=== PATIENT | male | born 1990 | race Caucasian/White ===

== ENCOUNTER 2016-09-16 10:46 | Inpatient (IN) | payer MEDICAID ==
[~2016-09-16] VITALS: Ht 162.6 cm; Wt 97.4 kg
[2016-09-16] MEDS ORDERED: HALOPERIDOL LACTATE 5 MG/ML VIAL ONE (11:39)
[2016-09-16] MEDS ORDERED: DiphenhydrAMINE HCL 50 MG/ML VIAL ONE (11:39)
[2016-09-16] MEDS ORDERED: LORazepam 2 MG/ML VIAL ONE (11:39)
[2016-09-16] MEDS ORDERED: DiphenhydrAMINE HCL 50 MG/ML VIAL IM ONE (12:00)
[2016-09-16] MEDS ORDERED: LORazepam 2 MG/ML VIAL IM ONE (12:00)
[2016-09-16] MEDS ORDERED: HALOPERIDOL LACTATE 5 MG/ML VIAL IM ONE (12:00)
[2016-09-16 12:21] LABS: BASOPHILS % (AUTO) 0.3 % (0.0-2.0); EOSINOPHILS % (AUTO) 0.5 % (1.0-6.0); HEMATOCRIT 43.5 % (41-53); HEMOGLOBIN 14.5 g/dL (13.5-17.5); LYMPHOCYTES # (AUTO) 1.4 K/uL (1.0-4.8); LYMPHOCYTES % (AUTO) 14.8 % (22.0-44.0); MEAN CORPUSCULAR HEMOGLOBIN 27.4 pg (26.0-34.0); MEAN CORPUSCULAR HGB CONC 33.3 G/dL (31.0-37.0); MEAN CORPUSCULAR VOLUME 82 fL (80-100); MONOCYTES # (AUTO) 0.5 K/uL (0.1-1.0); MONOCYTES % (AUTO) 5.6 % (2.0-9.0); NEUTROPHILS # (AUTO) 7.3 K/uL (1.8-7.7); NEUTROPHILS % (AUTO) 78.8 % (40.0-70.0); PLATELET COUNT (AUTO) 176 K/uL (150-450); RED BLOOD CELL COUNT(AUTO) 5.28 MIL/uL (4.50-5.90); RED CELL DISTRIBUTION WIDTH 13.1 % (11.5-14.5); WHITE BLOOD COUNT (AUTO) 9.3 K/uL (4.5-11.0)
[2016-09-16 12:27] LABS: ANION GAP 12 mmol/L (8-16); CALCIUM, TOTAL 8.7 mg/dL (8.8-10.5); CARBON DIOXIDE 24 mmol/L (22-29); CHLORIDE 103 mmol/L (98-107); CREATININE 0.92 mg/dL (0.60-1.30); GLOMERULAR FILTR. RATE CALC > 60 mL/min (>60); POTASSIUM 3.8 mmol/L (3.5-5.1); SODIUM SERUM 139 mmol/L (136-145); UREA NITROGEN, BLOOD 15 mg/dL (7-18)
[2016-09-16 12:33] LABS: ALANINE AMINOTRANSFERASE 41 U/L (12-78); ALBUMIN 4.3 g/dL (3.4-5.0); ASPARTATE AMINOTRANSFERASE 32 U/L (15-37); BILIRUBIN,TOTAL 0.9 mg/dL (0.1-1.0); TOTAL PROTEIN, SERUM 7.9 g/dL (6.4-8.2)
[2016-09-16] MEDS: OLANZapine 5 MG TABLET PO SCH (16:06)
[2016-09-16 17:34] VITALS: BP 119/75
[2016-09-16] MEDS ORDERED: INFLUENZA VIRUS VACCINE QVS 2016-17 (3YR+)/PF 60 MCG/0.5 ML SYRINGE IM ONE (18:00)
[2016-09-17 06:42] VITALS: BP 127/80
[2016-09-17 08:01] VITALS: BP 110/86
[2016-09-17] MEDS: OLANZapine 5 MG TABLET PO SCH ×2 (09:00→17:00)
[2016-09-17] MEDS ORDERED: LORazepam 2 MG/ML VIAL IM ONE (09:30)
[2016-09-17] MEDS ORDERED: DiphenhydrAMINE HCL 50 MG/ML VIAL IM ONE (09:30)
[2016-09-17] MEDS ORDERED: HALOPERIDOL LACTATE 5 MG/ML VIAL IM ONE (09:30)
[2016-09-17 16:02] VITALS: BP 135/82
[2016-09-17] MEDS: ONDANSETRON HCL 4 MG TABLET PO PRN (19:49)
[2016-09-18 06:48] VITALS: BP 122/68
[2016-09-18 08:01] VITALS: BP 135/71
[2016-09-18] MEDS: OLANZapine 5 MG TABLET PO SCH ×2 (09:13→16:22)
[2016-09-18] MEDS: LORazepam 2 MG TABLET PO PRN ×2 (09:14→16:22)
[2016-09-18] MEDS ORDERED: INFLUENZA VIRUS VACCINE QVS 2016-17 (3YR+)/PF 60 MCG/0.5 ML SYRINGE IM ONE (14:15)
[2016-09-18 16:01] VITALS: BP 119/68
[2016-09-19 01:30] VITALS: BP 129/60
[2016-09-19] MEDS: OLANZapine 5 MG RAPDIS TABLET PO PRN (02:47)
[2016-09-19] MEDS: LORazepam 2 MG TABLET PO PRN ×2 (02:47→17:03)
[2016-09-19 08:01] VITALS: BP 114/78
[2016-09-19] MEDS: OLANZapine 5 MG TABLET PO SCH ×2 (08:14→17:03)
[2016-09-19] MEDS ORDERED: LORazepam 2 MG/ML VIAL ONE (08:42)
[2016-09-19] MEDS ORDERED: HALOPERIDOL LACTATE 5 MG/ML VIAL ONE (08:42)
[2016-09-19] MEDS ORDERED: DiphenhydrAMINE HCL 50 MG/ML VIAL ONE (08:42)
[2016-09-19] MEDS ORDERED: HALOPERIDOL LACTATE 5 MG/ML VIAL IM ONE (08:45)
[2016-09-19] MEDS ORDERED: LORazepam 2 MG/ML VIAL IM ONE (08:45)
[2016-09-19] MEDS ORDERED: DiphenhydrAMINE HCL 50 MG/ML VIAL IM ONE (08:45)
[2016-09-19 16:00] VITALS: BP 136/82
[2016-09-20 04:54] VITALS: BP 132/78
[2016-09-20] MEDS: OLANZapine 5 MG RAPDIS TABLET PO PRN ×2 (06:45→11:13)
[2016-09-20] MEDS: LORazepam 2 MG TABLET PO PRN ×3 (06:45→16:32)
[2016-09-20 08:02] VITALS: BP 134/82
[2016-09-20] MEDS: OLANZapine 5 MG TABLET PO SCH ×2 (09:09→16:32)
[2016-09-20 16:00] VITALS: BP 116/60
[2016-09-21] MEDS: ZOLPIDEM TARTRATE 10 MG TABLET PO PRN (01:06)
[2016-09-21 01:07] VITALS: BP 125/75
[2016-09-21 08:01] VITALS: BP 143/78
[2016-09-21] MEDS: OLANZapine 5 MG RAPDIS TABLET PO PRN (08:03)
[2016-09-21] MEDS: LORazepam 2 MG TABLET PO PRN ×2 (08:03→16:15)
[2016-09-21] MEDS: OLANZapine 5 MG TABLET PO SCH ×2 (08:03→16:15)
[2016-09-21] MEDS: NYSTATIN 30 GM OINTMENT TP SCH ×2 (09:30→16:15)
[2016-09-21 16:29] VITALS: BP 138/88
[2016-09-22 02:06] VITALS: BP 124/72
[2016-09-22] MEDS: ZOLPIDEM TARTRATE 10 MG TABLET PO PRN ×2 (02:09→20:27)
[2016-09-22] MEDS: OLANZapine 5 MG TABLET PO SCH ×2 (08:09→09:33)
[2016-09-22] MEDS: OLANZapine 5 MG RAPDIS TABLET PO PRN ×2 (08:09→16:14)
[2016-09-22] MEDS: LORazepam 2 MG TABLET PO PRN ×3 (08:09→20:27)
[2016-09-22] MEDS: NYSTATIN 30 GM OINTMENT TP SCH ×2 (08:17→17:38)
[2016-09-22 08:33] VITALS: BP 135/83
[2016-09-22 17:02] VITALS: BP 136/85
[2016-09-22] MEDS: OLANZapine 10 MG TABLET PO SCH (20:27)
[2016-09-23 05:25] VITALS: BP 123/76
[2016-09-23 08:25] VITALS: BP 131/78
[2016-09-23] MEDS: NYSTATIN 30 GM OINTMENT TP SCH ×2 (09:35→16:16)
[2016-09-23] MEDS: LORazepam 2 MG TABLET PO PRN ×3 (09:35→20:17)
[2016-09-23] MEDS: OLANZapine 5 MG TABLET PO SCH (09:35)
[2016-09-23 16:00] VITALS: BP 134/90
[2016-09-23] MEDS: OLANZapine 5 MG RAPDIS TABLET PO PRN (16:16)
[2016-09-23] MEDS: ZOLPIDEM TARTRATE 10 MG TABLET PO PRN (20:17)
[2016-09-23] MEDS: OLANZapine 10 MG TABLET PO SCH (20:17)
[2016-09-24] MEDS: LORazepam 2 MG TABLET PO PRN ×2 (05:26→10:20)
[2016-09-24 06:43] VITALS: BP 122/87
[2016-09-24 08:01] VITALS: BP 132/68
[2016-09-24] MEDS: OLANZapine 5 MG TABLET PO SCH (08:34)
[2016-09-24] MEDS: NYSTATIN 30 GM OINTMENT TP SCH ×2 (08:34→16:26)
[2016-09-24 16:13] VITALS: BP 135/74
[2016-09-24] MEDS: OLANZapine 10 MG TABLET PO SCH (20:12)
[2016-09-24] MEDS ORDERED: OLAN5TAB2 PO (23:08)
[2016-09-24] MEDS ORDERED: OLAN10TA3 PO (23:08)
[2016-09-25 03:11] VITALS: BP 132/78
[2016-09-25] MEDS: LORazepam 2 MG TABLET PO PRN (08:08)
[2016-09-25] MEDS: NYSTATIN 30 GM OINTMENT TP SCH ×2 (08:08→16:56)
[2016-09-25] MEDS: OLANZapine 5 MG TABLET PO SCH (08:08)
[2016-09-25 08:12] VITALS: BP 134/83
[2016-09-25] MEDS: ONDANSETRON HCL 4 MG TABLET PO PRN (09:04)
[2016-09-25] MEDS ORDERED: NYST15OI TP (11:02)
[2016-09-25 16:04] VITALS: BP 128/73
== END 2016-09-25 18:55 | disposition home or self-care (01) | DRG 750 ==
LOC: EEVIPCON 10:47 → EMS 10:47 → B3A 15:15
DX: F25.0 Schizoaffective disorder, bipolar type (principal); Z78.1 Physical restraint status; F41.9 Anxiety disorder, unspecified; F17.210 Nicotine dependence, cigarettes, uncomplicated; F10.10 Alcohol abuse, uncomplicated; F12.10 Cannabis abuse, uncomplicated; Z71.51 Drug abuse counseling and surveillance of drug abuser; Z71.41 Alcohol abuse counseling and surveillance of alcoholic; Z71.6 Tobacco abuse counseling; Z28.21 Immunization not carried out because of patient refusal
CPT/HCPCS: 90471; 96372; 99285; G0480; J1200; J1630; J2060; Q0162